=== PATIENT | female | born 1955 | race Caucasian/White ===

== ENCOUNTER → 2018-03-21 08:41 | Outpatient (CLI) | payer OTHER, SELFPAY ==
--- NOTE | 2018-03-21 08:44 | BI_ITS ---
MAMMOGRAPHY - BILATERAL SCREENING REASON FOR EXAM: Female, 62 years old. Routine annual screening examination. PERTINENT HISTORY: Non-contributory. TECHNIQUE: Digital bilateral breast abilio (3D mammographic acquisition) in the CC and MLO projections. 2-D mediolateral oblique (MLO) and craniocaudad (CC) views of both breasts were obtained. CAD: Full Field Digital Mammography with Computer Added Detection was performed. COMPARISON: Comparison is made with prior study dated March 08, 2017 and December 08, 2015. FINDINGS: Breast Composition: The breasts are heterogeneously dense, which may obscure small masses. There are no dominant masses or suspicious calcifications. No other significant abnormalities are identified. There has been no significant change since the prior study. BI/SCREENING MAMM (CAD), BILAT IMPRESSION: Stable bilateral screening mammogram. Yearly follow-up mammogram recommended. (A) ASSESSMENT CATEGORY: BIRADS Category 1: Negative. A letter regarding these results will be sent to the patient by the facility within 30 days. Approximately 10% of breast cancers are not detected by mammography. A normal mammogram should not delay biopsy of a clinically suspicious abnormality. [id number] Electronically Signed: Cristopher Houser MD at 9:43 EDT Tel [phone], Service support ,
== END ==
PROVIDERS: Family Provider Family Medicine; PCP Family Medicine; Visit Provider Family Medicine
DX: Z12.31 Encounter for screening mammogram for malignant neoplasm of breast (principal)
CPT/HCPCS: 77063; 77067

== ENCOUNTER → 2018-08-01 15:43 | Outpatient (CLI) | payer OTHER, SELFPAY ==
[2018-08-01 18:19] LABS: AST(SGOT) 58 U/L (15-37); Cholesterol 130 mg/dL (200); High Density Lipoprotein 55 mg/dL; Triglycerides 84 mg/dL; Very Low Density Lipoprotein 17 mg/dL (5-40)
[2018-08-06 12:04] LABS: HPV Reflexed? NOT INDICATED
== END ==
LOC: MFPLAB 15:44 → LABSPEC 15:46
PROVIDERS: Family Provider Family Medicine; PCP Family Medicine; Visit Provider Family Medicine
DX: Z12.4 Encounter for screening for malignant neoplasm of cervix (principal); E78.5 Hyperlipidemia, unspecified
CPT/HCPCS: 36415; 80061; 84450; 88175; G0145

== ENCOUNTER → 2019-03-30 12:33 | Outpatient (CLI) | payer OTHER, SELFPAY ==
--- NOTE | 2019-03-30 12:36 | BI_ITS ---
MAMMOGRAPHY - BILATERAL SCREENING REASON FOR EXAM: Female, 63 years old. Routine annual screening examination. PERTINENT HISTORY: Non-contributory. TECHNIQUE: Digital bilateral breast linda (3D mammographic acquisition) in the CC and MLO projections. 2-D mediolateral oblique (MLO) and craniocaudad (CC) views of both breasts were obtained. CAD: Full Field Digital Mammography with Computer Added Detection was performed. COMPARISON: Comparison is made with prior study dated March 21, 2018 and March 08, 2017. FINDINGS: Breast Composition: The breasts are heterogeneously dense, which may obscure small masses. There are no dominant masses or suspicious calcifications. No other significant abnormalities are identified. There has been no significant change since the prior study. BI/SCREEN MAMM (CAD) W/LINDA BILAT IMPRESSION: Stable bilateral screening mammogram. Yearly follow-up mammogram recommended. (A) ASSESSMENT CATEGORY: BIRADS Category 1: Negative. A letter regarding these results will be sent to the patient by the facility within 30 days. Approximately 10% of breast cancers are not detected by mammography. A normal mammogram should not delay biopsy of a clinically suspicious abnormality. [id number] Electronically Signed: Cristopher Houser, at 14:40 EDT , Service support ,
== END ==
PROVIDERS: Family Provider Family Medicine; PCP Family Medicine; Referring Provider Family Medicine; Visit Provider Family Medicine
DX: Z12.31 Encounter for screening mammogram for malignant neoplasm of breast (principal)
CPT/HCPCS: 77063; 77067

== ENCOUNTER → 2020-04-04 15:14 | Outpatient (CLI) | payer OTHER, SELFPAY ==
--- NOTE | 2020-04-04 15:16 | BI_ITS ---
MAMMOGRAPHY - BILATERAL SCREENING 3-D TOMOSYNTHESIS REASON FOR EXAM: Female, 64 years old. Routine screening PERTINENT HISTORY: No significant family history. TECHNIQUE: 2-D mammograms and 3-D Tomosynthesis of the breast (s) were performed. CAD was performed. COMPARISON: 03/30/2019 FINDINGS: The breast composition is heterogeneously dense that can obscure small breast masses. Scattered benign calcifications are seen. No dense spiculated masses or suspicious microcalcifications are identified. No architectural distortion is identified. There is no skin thickening or retraction. There has been no significant change since the prior study. BI/SCREEN MAMM (CAD) W/LINDA BILAT IMPRESSION: No mammographic signs of malignancy. Routine yearly mammograms recommended. ASSESSMENT CATEGORY: BIRADS Category 1: Negative. A letter regarding these results will be sent to the patient by the facility within 30 days. FOLLOW UP RECOMMENDATION: Yearly follow up mammogram recommended. (A) Approximately 10% of breast cancers are not detected by mammography. A normal mammogram should not delay biopsy of a clinically suspicious abnormality. Electronically Signed: Seven Soni MD at 10:51 EDT , Service support ,
== END ==
PROVIDERS: PCP Family Medicine; Referring Provider Family Medicine; Visit Provider Family Medicine
DX: Z12.31 Encounter for screening mammogram for malignant neoplasm of breast (principal)
CPT/HCPCS: 77063; 77067

== ENCOUNTER 2020-09-25 08:30 | Outpatient (RCR) | payer OTHER, SELFPAY ==
--- NOTE | 2020-08-21 08:58 | HP.PTEVAL_ITS ---
Patient's Visit Information FERNY OLIVER is a 65 year old F referred to Physical Therapy by Dr. Selena Chauhan MD with a diagnosis of CHRONIC BACK STAIN. Date of Evaluation: 08/21/20 Physical Therapist: Viktoria Raygoza PT, Cert MDT - Visit Plan Frequency: 2x /Week Duration: 6 Weeks Plan: POSTURE CORRECTION/STRENGTHENING, INSTRUCTION IN APPROPRIATE BODY MECHANICS AND ACTIVITY MODIFICATIONS. DLS STARTING WITH A NEUTRAL SPINE PROGRESSING ROM TOLERATED. BELLO LE ROM, STRETCHING AND STRENGTHENING. HEP INSTRUCTION. - Subjective Work/Leisure: RETIRED. Disability: NO. Present symptoms: UPPER BACK PAIN. BELLO LOW BACK PAIN. RIGHT BUTTOCK PAIN. PATIENT DENIES BELLO LE SX'S OTHER THAN RIGHT BUTTOCK PAIN. CONSTANT BACK STIFFNESS. Present since: LBP CHRONIC. RIGHT BUTTOCK PAIN STARTED ABOUT A MONTH AGO. Pain Scale: WORST 5/10, LEAST 0/10. Currently: 0/10. Commenced as a result of: NO APPARENT REASON. Symptoms at onset: LOW BACK. Worse: AM, WALKING MORE THAN 2 MILES, GETTING DOWN ON THE FLOOR TO DO EX'S, YOGA, STANDING FOR A LONG TIME - GETTING THANKSGIVING DINNER READY, SITTING SLOUCHED. Better: ELIPTICAL, MVMT, CHANGE OF POSITION. SOMETIMES LYING DOWN FOR ABOUT 5 MINUTES. Disturbed sleep: NO. Previous history/Previous treatment: SEP/OCT 2019 LIFTING 2 YEAR OLD GRANDSON AND LIFTING GRAND-DAUGHTER A LOT. NOVEMBER - AFTER 3 DAYS OF STARTING PILATES BACK STARTED KILLING ME AND IT HAS NEVER RECOVERED. ALWAYS FEELS STIFF TO SOME DEGREE NOW. Treatment this episode: PT REFERRAL. Coughing/sneezing/straining: POSITIVE. Gait: MORE DISTANCE LIMITED THAN NORMAL. Difficulty initiating urinatin: NO. Accidents: NO. Unexplained weight loss: NO. Imaging: NO IMAGING. PMH: UNREMARKABLE. OTHER: PATIENT REPORTS SHE IS WORRIED SHE IS DEVELOPING ARTHRITIS IN HER BACK BECAUSE SHE CAN SEE IT IN HER FINGERS. - Objective Sitting/Standing Posture: FAIR. Lordosis: DECREASED. Lateral shift: NO. Relevant shift: N/A. Active Correction of posture: WORSE - INCREASES R LBP. Other Observations: INDEP GAIT AND TRANSFERS. Motor deficit: BELLO LE'S GROSSLY 5/5 WITH MMT'ING. Sensory deficit: BELLO LE LIGHT TOUCH SENSATION INTACT AND SYMMETRICAL. ROM deficit: BELLO LE'S WFL WITH MILD BELLO HS TIGHTNESS. Reflexes: NT. Dural Signs: NEGATIVE BELLO LE'S. Lumbar mvmt loss: flex - MIN - STIFF. ext - ROSLYN. R SG - MOD. L SG - MOD. PATIENT REPORTS INCREASED RIGHT LBP WI TH BELLO SG TESTING. Core strength: FAIR. Palpation: NO ACUTE TENDERNESS WITH PALPATION OF THE THORACIC, LUMBAR, SACRAL, BUTTOCK OR HIP REGIONS. TREATMENT: NEUROMUSCULAR REEDUCATION - RETRAINING OF MVMT AND POSTURE FOR SITTING, LYING AND STANDING ACTIVITIES. - Goals Goal 1:: DECREASE C/O LOW BACK PAIN Goal Time Frame: 4-6 Weeks Goal 2:: IMPROVE PERSONAL CARE, LIFTING, SITTING, STANDING, TRAVEL AND WORK/HOMEMAKING FUNCTION Goal Time Frame: 4-6 Weeks Goal 3:: INSTRUCT IN PROPHYLAXSIS Goal Time Frame: 4-6 Weeks - Anticipated Interventions Patient/Client Instruction: Educate patient on: Condition, Plan of Care, Risk Factors, Benefits of Fitness Program For the Purpose of:: To improve self management Therapeutic Exercise to Include: Strength training, Body mechanics, Postural training, Flexibilty training, Neuromotor development, In an aquatic setting, Dynamic Lumbar Stabilization For the Purpose of:: To decrease pain, To increase ROM, To improve muscle performance and motor function, To increase tolerance to activity/condition/position, To improve ability of physical actions for home/community/work/leisure TENS: Yes IF ES: Yes Cryotherapy (ice pack, ice massage): Yes Thermo therapy (hot pack): Yes Ultrasound (thermal/non thermal): Yes For the Purpose of:: To decrease pain, To improve nutrient delivery to tissue Thank you for the opportunity to evaluate your patient. For Medicare and Medicare HMO plans, please review the plan of care and approve it. It will need to be FAXED BACK to us at [phone] for Medicare purposes. For Medicare only, by signing this I certify the plan of care. Please let me know if there are questions or concerns regarding this plan of care. Physician Signature: Date:
--- NOTE | 2020-09-25 09:05 | HP.PTDCSUM ---
It has been my pleasure to treat FERNY OLIVER referred by Dr. Selena Chauhan MD, with the diagnosis of CHRONIC BACK STAIN for a total of 9 visit(s). Discharge Date: Please see the following information for a summary of their discharge status. Subjective: PATIENT REPORTS SHE IS A LOT BETTER. STATES SHE FEELS LIKE SHE KNOWS BETTER NOW WHAT TO DO TO KEEP IT UNDER CONTROL. PATIENT REPORTS OCCASSIONAL INTERMITTENT BRIEF PAIN IN HER RIGHT BUTTOCK NOW. SHE REPORTS THE NEWER PAIN SHE WAS HAVING IN HER BUTTOCK IS PRETTY MUCH CLEARED UP. SHE REPORTS SHE PLANS ON CONTINUEING HER HEP BECAUSE THEY HELP. PATIENT REPORTS SHE HAS ALSO HAD IMPROVEMENT IN HER CHRONIC LBP (ABOUT 50%) BUT SHE IS STILL REALLY STIFF WHEN SHE GETS UP IN THE MORNING. BY ABOUT 10:00AM MOST OF THE STIFFNESS IS CLEARED UP AND SHE DOESN'T THINK ABOUT HER BACK PAIN/STIFFNESS MOST OF THE REST OF THE DAY. DOING HER HEP AT ABOUT NOON SEEMS TO HELP HER GET THROUGHT THE REST OF THE DAY. PATIENT REPORTS SHE IS USING BETTER POSTURE CONTROL AND BODY MECHANICS NOW. STILL FRUSTRATING THAT IT IS STIFF IN THE MORNINGS. FOR A WHILE BEFORE STARTING PT PUTTING SOCKS ON WAS MUCH MORE OF A CHALLENGE. PATIENT REPORTS SHE WOULD LIKE TO STOP PT AT THIS TIME AND CONTINUE ON HER OWN WITH HER HEP. RIGHT BUTTOCK Pain Intensity (Out of 10): 0 % Improvement: 95 Objective/Function: PATIENT WAS SEEN TODAY FOR RE-ASSESSMENT OF PROGRESS TOWARD THE SET PT GOALS AND THE NEED FOR FURTHER PHYSICAL THERAPY VS READINESS FOR DISCHARGE. PATIENT HAS MADE GREAT PROGRESS WITH PT AND IS INDEP WITH A HEP. UPON EXAM TODAY: Active Correction of posture: BETTER. Other Observations: INDEP GAIT AND TRANSFERS. Motor deficit: BELLO LE'S GROSSLY 5/5 WITH MMT'ING. Sensory deficit: BELLO LE LIGHT TOUCH SENSATION INTACT AND SYMMETRICAL. ROM deficit: BELLO LE'S WFL WITH MILD BELLO HS TIGHTNESS. Reflexes: NT. Dural Signs: NEGATIVE BELLO LE'S. Lumbar mvmt loss: flex - NIL - STIFF. ext - MOD TO ROSLYN. R SG - MOD. L SG - MOD. PATIENT REPORTS JUST STIFFNESS WITH LUMBAR ROM TESTING TODAY. Core strength: FAIR. Palpation: NO ACUTE TENDERNESS WITH PALPATION OF THE THORACIC, LUMBAR, SACRAL, BUTTOCK OR HIP REGIONS. Goal 1:: DECREASE C/O LOW BACK PAIN Goal Progress: Goal Met Goal 2:: IMPROVE PERSONAL CARE, LIFTING, SITTING, STANDING, TRAVEL AND WORK/HOMEMAKING FUNCTION Goal Progress: Goal Met Goal 3:: INSTRUCT IN PROPHYLAXSIS Goal Progress: Goal Met Plan: D/C TO HEP. PATIENT TO CONTACT DR. CHAUHAN IF HER PAIN DOES NOT CONTINUE TO GO AWAY. If there are questions or concerns regarding this patient's physical therapy, please feel free to call me at [phone]. Thank you for the referral of this patient. Sincerely, Viktoria Raygoza, PT, Cert MDT
== END 2020-09-25 19:00 | disposition home or self-care (01) ==
LOC: PT 08:30
PROVIDERS: PCP Family Medicine; Referring Provider Family Medicine; Visit Provider Family Medicine
DX: S39.012D Strain of muscle, fascia and tendon of lower back, subsequent encounter (principal)
CPT/HCPCS: 97014; 97035; 97110; 97112; 97161; 97164; 97530; G0283

== ENCOUNTER 2020-11-20 14:39 | Outpatient (RCR) | payer MEDICARE, OTHER, SELFPAY ==
[2020-11-20] MEDS: COVID-19 VACC, MRNA(PFIZER)/PF 30 MCG/0.3 ML SYRINGE IM (12:27)
[2020-12-11] MEDS: COVID-19 VACC, MRNA(PFIZER)/PF 30 MCG/0.3 ML SYRINGE IM (12:29)
== END 2020-11-20 23:59 ==
LOC: IMMUN 14:39
PROVIDERS: PCP Family Medicine; Visit Provider Family Medicine
DX: Z23 Encounter for immunization (principal)
CPT/HCPCS: 0001A; 0002A

== ENCOUNTER → 2021-04-24 14:13 | Outpatient (CLI) | payer MEDICARE, OTHER, SELFPAY ==
--- NOTE | 2021-04-24 14:15 | CT_ITS ---
INDICATION: SINUSITIS EXAMINATION: CT SINUSES - CT Sinuses W/O Contrast Injection TECHNIQUE: Helically acquired images were obtained of the paranasal sinuses. A radiation dose optimization technique was used for this scan. IV Contrast dosage and agent: None COMPARISON: None. FINDINGS: FRONTAL SINUSES AND RECESSES: The frontal sinuses are primarily hypoplastic. There is a small left frontal sinus without significant disease. ETHMOID AIR CELLS: Bilateral ethmoid air cell disease is noted with mucosal thickening and opacification. This is more prominent on the left. There is mild thinning of the left-sided lamina appreciated without overt dehiscence. MAXILLARY SINUSES: The maxillary sinuses demonstrate diffuse circumferential mucosal thickening and partial opacification inferiorly. There is mild sclerosis and thickening of the surrounding bone which may represent chronic process. OSTIOMEATAL COMPLEXES: Appear opacified SPHENOID SINUSES: Scattered mucosal thickening is noted without evidence of air-fluid level. SPHENOETHMOIDAL RECESSES: Demonstrate mucosal thickening. 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 The orbits are otherwise normal appearing. VISUALIZED DENTITION: Multiple periapical lucencies are noted about the teeth suggestive of dental disease. ANTERIOR CRANIAL FOSSA: Unremarkable. MISCELLANEOUS: Bilateral temporomandibular joint degenerative changes seen. There is also degenerative change within the visualized cervical spine. No acute fracture is seen. Visualized airway is patent. Mastoid air cells appear clear. CT/Sinus/Facial Bone IMPRESSION: 1. Diffuse paranasal sinus disease as described in detail above. There is evidence of mild osseous sclerosis and thickening suggestive of a chronic process. Also noted is thinning of the left lamina papyracea without carlo dehiscence. 2. Multiple periapical lucencies about the teeth suggestive of dental disease. 3. Other chronic and incidental findings as above. Electronically Signed: Clive Hess MD at 10:54 EDT Tel , Service support ,
== END ==
PROVIDERS: PCP Family Medicine; Referring Provider Otolaryngology; Visit Provider Otolaryngology
DX: J32.9 Chronic sinusitis, unspecified (principal)
CPT/HCPCS: 70486

== ENCOUNTER → 2021-05-18 09:20 | Outpatient (CLI) | payer MEDICARE, OTHER, SELFPAY ==
[2021-05-15 12:30] LABS: Hematocrit 42.7 % (37-47); Hemoglobin 13.8 g/dL (12.0-15.0); Mean Corp Hgb Conc 32.3 g/dL (32-36); Mean Corpuscular Hgb 29.6 pg (27.0-32.0); Mean Corpuscular Volume 91.4 fL (81-99); Mean Platelet Vol. 10.7 fl (6.2-12.0); Platelet Count 198 K/mm3 (150-450); RBC Distribution Width CV 12.4 % (11.6-14.6); RBC Distribution Width SD 40.8 fl (35.1-43.9); Red Blood Count 4.67 M/mm3 (4.2-5.4); White Blood Count 8.7 K/mm3 (4.4-11.0)
[2021-05-15 12:41] LABS: Anion Gap 7 (5-15); BUN 18 mg/dL (7-18); BUN/Creat Ratio 22.4 RATIO (10-20); Calcium,Total 9.2 mg/dL (8.5-10.1); Chloride 103 mmol/L (98-107); EST Glomerular Filtration Rate 76 mL/min (>60); Est Glom Filt Rate - Afr Amer 91 mL/min (>60); Glucose 114 mg/dL (74-106); Potassium 4.1 mmol/L (3.5-5.1); Sodium Level 136 mmol/L (136-145)
== END ==
PROVIDERS: PCP Family Medicine; Referring Provider Otolaryngology; Visit Provider Otolaryngology
DX: Z01.818 Encounter for other preprocedural examination (principal)
CPT/HCPCS: 36415; 80048; 85027; 93005

== ENCOUNTER → 2021-05-20 15:34 | Outpatient (CLI) | payer MEDICARE, OTHER, SELFPAY ==
--- NOTE | 2021-05-19 13:30 | ETH_PTH ---
PATIENT: FERNY OLIVER LOC: [facility] U#:[id number] AGE/SX: 70/F ROOM: RE05/20/[address]: Dr. Inocencio Rothman MD : 1955 BED: DIS: SPEC #: [id number] RECD: 05/20/21 15:20 STATUS: ERIBERTO BELGICA #: [id number] WANDA: 05/19/21 13:[address]: Inocencio Rothman DEPT: SURGICAL PATHOLOGY RECD BY: Antonio Ocasio ENTERED: 05/21/21 10:02 SP TYPE: ETH TISS OTHR DR: Dr. Selena Chauhan MD [facility] Tissues: A - Ethmoid sinus, NOS B - Ethmoid sinus, NOS Procedures: Decalcification bone/plaque Surgery Specimen Level III HEADER OPERATION: FESS, septoplasty PRE-OP DIAGNOSIS: TISSUE SUBMITTED: A - Right side nasal contents, B ? Left side nasal contents MICROSCOPIC DIAGNOSIS A. Right nasal contents. curettings: Consistent with chronic sinusitis. Fragments of bone with no pathologic change. B. Left nasal contents. curettings: Consistent with chronic sinusitis. Fragments of bone with no pathologic change. AM;brandon 05/26/21 MICROSCOPIC DESCRIPTION Slides are reviewed. GROSS DESCRIPTION A - Received in fixative is one container labeled with the patient's name and designated right nasal contents. The specimen consists of multiple irregular fragments of joiner soft tissue mixed with fragments of bone that in aggregate measure 2.5 x 1 x 0.4 cm. The specimen is totally submitted in one cassette after decalcification. B - Received in fixative is one container labeled with the patient's name and designated left nasal contents. The specimen consists of multiple irregular fragments of joiner soft tissue mixed with fragments of bone that in aggregate measure 2.5 x 1.5 x 0.2 cm. The specimen is totally submitted in one cassette after decalcification. / SJ:epi 05/21/21 TC:3 CPT:[id number]
== END ==
PROVIDERS: PCP Family Medicine; Referring Provider Otolaryngology; Visit Provider Otolaryngology
DX: J32.9 Chronic sinusitis, unspecified (principal)
CPT/HCPCS: 88304; 88305; 88311

== ENCOUNTER → 2021-06-12 12:14 | Outpatient (CLI) | payer MEDICARE, OTHER, SELFPAY ==
--- NOTE | 2021-06-12 12:50 | BI_ITS ---
MAMMOGRAPHY - BILATERAL SCREENING REASON FOR EXAM: Female, 66 years old. Routine annual screening examination. PERTINENT HISTORY: Non-contributory. TECHNIQUE: Digital bilateral breast linda (3D mammographic acquisition) in the CC and MLO projections. 2-D mediolateral oblique (MLO) and craniocaudad (CC) views of both breasts were obtained. CAD: Full Field Digital Mammography with Computer Added Detection was performed. COMPARISON: Comparison is made with prior study dated 04/04/2020 and 03/30/2019. FINDINGS: Breast Composition: The breasts are heterogeneously dense, which may obscure small masses. Questionable 2.1 cm nodular density in the upper lateral aspect of the right breast. Correlation with ultrasound is recommended. No other significant abnormalities are identified. BI/SCRN MAMM (CAD)W/LINDA BILAT IMPRESSION: Questionable 2.1 cm nodular density in the upper lateral aspect of the right breast. Correlation with ultrasound is recommended. ASSESSMENT CATEGORY: BIRADS Category 0: Incomplete. Need additional imaging evaluation. A letter regarding these results will be sent to the patient by the facility within 30 days. Approximately 10% of breast cancers are not detected by mammography. A normal mammogram should not delay biopsy of a clinically suspicious abnormality. [id number] Electronically Signed: Cristopher Houser MD at 13:53 EDT , Service support ,
== END ==
PROVIDERS: PCP Family Medicine; Referring Provider Family Medicine; Visit Provider Family Medicine
DX: Z12.31 Encounter for screening mammogram for malignant neoplasm of breast (principal)
CPT/HCPCS: 77063; 77067

== ENCOUNTER → 2021-06-17 13:58 | Outpatient (CLI) | payer MEDICARE, OTHER, SELFPAY ==
--- NOTE | 2021-06-17 14:00 | US_ITS ---
STUDY: ULTRASOUND BREAST - RIGHT REASON FOR EXAM: Female, 66 years old. Abnormal screening mammogram. TECHNIQUE: Axial and longitudinal images of the RIGHT breast were performed with a high resolution ultrasound transducer. # OF IMAGES: [id number] COMPARISON: Comparison is made with prior mammogram dated 06/12/2021. FINDINGS: RIGHT Breast: The upper outer quadrant of the right breast was examined by ultrasound. There is dense fibroglandular tissue. No sonographic abnormality is seen. US/Breast Limited Unilateral IMPRESSION: No sonographic abnormality is seen. ASSESSMENT CATEGORY: BIRADS Category 1: Negative. A letter regarding these results will be sent to the patient by the facility within 30 days. Electronically Signed: Cristopher Houser MD at 9:53 EDT , Service support ,
== END ==
PROVIDERS: PCP Family Medicine; Referring Provider Family Medicine; Visit Provider Family Medicine
DX: R92.8 Other abnormal and inconclusive findings on diagnostic imaging of breast (principal)
CPT/HCPCS: 76642

== ENCOUNTER → 2022-01-12 | Outpatient (CLI) | payer MEDICARE, OTHER, SELFPAY ==
[2022-01-12 15:52] LABS: AST(SGOT) 26 U/L (15-37); Alanine Aminotransfer ALT/SGPT 30 U/L (13-56); Cholesterol 133 mg/dL (200); High Density Lipoprotein 60 mg/dL; Triglycerides 87 mg/dL; Very Low Density Lipoprotein 17 mg/dL (5-40)
== END | disposition home or self-care (01) ==
LOC: MFPLAB 11:36
PROVIDERS: PCP Family Medicine; Referring Provider Family Medicine; Visit Provider Family Medicine
DX: E78.5 Hyperlipidemia, unspecified (principal)
CPT/HCPCS: 36415; 80061; 84450; 84460

== ENCOUNTER → 2022-07-16 | Outpatient (CLI) | payer MEDICARE, OTHER, SELFPAY ==
--- NOTE | 2022-07-16 12:51 | BI_ITS ---
MAMMOGRAPHY - BILATERAL SCREENING REASON FOR EXAM: Female, 67 years old. Routine annual screening examination. PERTINENT HISTORY: Non-contributory. TECHNIQUE: Digital bilateral breast abilio (3D mammographic acquisition) in the CC and MLO projections. 2-D mediolateral oblique (MLO) and craniocaudad (CC) views of both breasts were obtained. CAD: Full Field Digital Mammography with Computer Added Detection was performed. COMPARISON: Comparison is made with prior study dated 06/12/2021 and 04/04/2020. FINDINGS: Breast Composition: The breasts are heterogeneously dense, which may obscure small masses. There are no dominant masses or suspicious calcifications. No other significant abnormalities are identified. There has been no significant change since the prior study. BI/SCREENING MAMM (CAD), BILAT IMPRESSION: Stable bilateral screening mammogram. Yearly follow-up mammogram recommended. (A) ASSESSMENT CATEGORY: BIRADS Category 1: Negative. A letter regarding these results will be sent to the patient by the facility within 30 days. Approximately 10% of breast cancers are not detected by mammography. A normal mammogram should not delay biopsy of a clinically suspicious abnormality. [id number] Electronically Signed: Cristopher Houser MD at 13:35 EDT ,
== END | disposition home or self-care (01) ==
LOC: OPBI 12:50
PROVIDERS: PCP Family Medicine; Referring Provider Family Medicine; Visit Provider Family Medicine
DX: Z12.31 Encounter for screening mammogram for malignant neoplasm of breast (principal)
CPT/HCPCS: 77067

== ENCOUNTER → 2023-01-14 | Outpatient (CLI) | payer MEDICARE, OTHER, SELFPAY ==
[2023-01-14 16:05] LABS: AST(SGOT) 31 U/L (15-37); Alanine Aminotransfer ALT/SGPT 31 U/L (13-56); Cholesterol 126 mg/dL (200); High Density Lipoprotein 52 mg/dL; Triglycerides 116 mg/dL; Very Low Density Lipoprotein 23 mg/dL (5-40)
== END | disposition home or self-care (01) ==
LOC: MFPLAB 11:26
PROVIDERS: PCP Family Medicine; Visit Provider Family Medicine
DX: E78.5 Hyperlipidemia, unspecified (principal)
CPT/HCPCS: 36415; 80061; 84450; 84460

== ENCOUNTER → 2023-07-22 | Outpatient (CLI) | payer MEDICARE, OTHER, SELFPAY ==
--- NOTE | 2023-07-22 12:59 | BI_ITS ---
MAMMOGRAPHY - BILATERAL SCREENING REASON FOR EXAM: Female, 68 years old. Routine annual screening examination. PERTINENT HISTORY: Non-contributory. TECHNIQUE: Digital bilateral breast linda (3D mammographic acquisition) in the CC and MLO projections. 2-D mediolateral oblique (MLO) and craniocaudad (CC) views of both breasts were obtained. CAD: Full Field Digital Mammography with Computer Added Detection was performed. COMPARISON: Comparison is made with prior examination dated July 08, 2022 and June 12, 2021. FINDINGS: Breast Composition: The breasts are heterogeneously dense, which may obscure small masses. There are no dominant masses or suspicious calcifications. Stable vascular calcification. No other significant abnormalities are identified. There has been no significant change since the prior study. BI/SCRN MAMM (CAD)W/LINDA BILAT IMPRESSION: Stable bilateral screening mammogram. Yearly follow-up mammogram recommended. (A) ASSESSMENT CATEGORY: BIRADS Category 2: Benign. A letter regarding these results will be sent to the patient by the facility within 30 days. Approximately 10% of breast cancers are not detected by mammography. A normal mammogram should not delay biopsy of a clinically suspicious abnormality. [id number] Electronically Signed: Cristopher Houser MD at 13:58 EDT ,
== END | disposition home or self-care (01) ==
LOC: OPBI 12:58
PROVIDERS: PCP Family Medicine; Referring Provider Family Medicine; Visit Provider Family Medicine
DX: Z12.31 Encounter for screening mammogram for malignant neoplasm of breast (principal)
CPT/HCPCS: 77063; 77067

== ENCOUNTER → 2024-03-16 | Outpatient (CLI) | payer MEDICARE, OTHER, SELFPAY ==
[2024-03-16 12:47] LABS: AST(SGOT) 28 U/L (15-37); Alanine Aminotransfer ALT/SGPT 30 U/L (13-56); Cholesterol 136 mg/dL (200); High Density Lipoprotein 57 mg/dL; Triglycerides 92 mg/dL; Very Low Density Lipoprotein 18 mg/dL (5-40)
== END | disposition home or self-care (01) ==
LOC: MFPLAB 10:26
PROVIDERS: PCP Family Medicine; Visit Provider Family Medicine
DX: E78.5 Hyperlipidemia, unspecified (principal)
CPT/HCPCS: 36415; 80061; 84450; 84460

== ENCOUNTER → 2024-08-23 | Outpatient (CLI) | payer MEDICARE, OTHER, SELFPAY ==
--- NOTE | 2024-08-23 09:04 | BI_ITS ---
MAMMOGRAPHY - BILATERAL SCREENING REASON FOR EXAM: Female, 69 years old. Routine annual screening examination. PERTINENT HISTORY: Non-contributory. TECHNIQUE: Digital bilateral breast linda (3D mammographic acquisition) in the CC and MLO projections. 2-D mediolateral oblique (MLO) and craniocaudad (CC) views of both breasts were obtained. CAD: Full Field Digital Mammography with Computer Added Detection was performed. COMPARISON: Comparison is made with prior study July 22, 2023 and July 08, 2022. FINDINGS: Breast Composition: The breasts are heterogeneously dense, which may obscure small masses. There are no dominant masses or suspicious calcifications. No other significant abnormalities are identified. There has been no significant change since the prior study. BI/SCRN MAMM (CAD)W/LINDA BILAT IMPRESSION: Stable bilateral screening mammogram. Yearly follow-up mammogram recommended. (A) ASSESSMENT CATEGORY: BIRADS Category 1: Negative. A letter regarding these results will be sent to the patient by the facility within 30 days. Approximately 10% of breast cancers are not detected by mammography. A normal mammogram should not delay biopsy of a clinically suspicious abnormality. [id number] Electronically Signed: Cristopher Houser MD at 9:50 EST ,
== END | disposition home or self-care (01) ==
LOC: OPBI 09:04
PROVIDERS: PCP Family Medicine; Referring Provider Family Medicine; Visit Provider Family Medicine
DX: Z12.31 Encounter for screening mammogram for malignant neoplasm of breast (principal)
CPT/HCPCS: 77063; 77067

== ENCOUNTER → 2025-07-05 | Outpatient (CLI) | payer MEDICARE, OTHER, SELFPAY ==
[2025-07-05 10:32] LABS: AST(SGOT) 31 U/L (<=31); Alanine Aminotransfer ALT/SGPT 30 U/L (<=34); Albumin, Serum 4.1 g/dL (3.4-4.8); Alkaline Phosphatase 73 U/L (35-104); Anion Gap 8 (5-15); BUN 16 mg/dL (4-19); BUN/Creat Ratio 18.8 RATIO (10-20); Calcium,Total 9.0 mg/dL (7.6-11.0); Carbon Dioxide 27.9 mmol/L (21.0-32.0); Chloride 104 mmol/L (98-108); Cholesterol 151 mg/dL (<=200); Globulin 2.7 g/dL (2.2-4.2); Glucose 90 mg/dL (70-99); Low Density Lipoprotein Calc. 72 mg/dL; Potassium 3.9 mmol/L (3.3-5.1); Triglycerides 92 mg/dL; Very Low Density Lipoprotein 18 mg/dL (5-40); cholesterol:hdl ratio screen 2.50
== END | disposition home or self-care (01) ==
LOC: MFPLAB 08:10
PROVIDERS: PCP Family Medicine; Visit Provider Family Medicine
DX: E78.5 Hyperlipidemia, unspecified (principal)
CPT/HCPCS: 36415; 80053; 80061